=== PATIENT | female | born 1930 | race Caucasian/White ===

== ENCOUNTER 2019-01-04 10:44 | Observation (INO) ==
[2019-01-04] MEDS ORDERED: LASIX IV SCH (11:15)
--- NOTE | 2019-01-04 11:27 | Diag Imaging Result Doc PS360 ---
EXAM: CHEST-PORTABLE HISTORY: sob TECHNIQUE: Single view COMPARISON: 03/22/2018 FINDINGS: The lungs are well expanded. The heart is enlarged. The vessels are not distended. There are no infiltrates. No effusion identified. IMPRESSION: Cardiomegaly Electronically signed by David Johnson 01/04/2019 11:25 AM
[2019-01-04 11:50] LABS: ALLEN TEST NO; BE 15.3 mmoll (-3.0-3.0); BLOOD TYPE ARTERIAL; HCO3-(ACT) 36.9 mmoll (20.0-26.0); METHB 1.2 % (0.0-1.5); O2(CT) 10.8 mL/dL (15.0-23.0); O2HB 95.1 % (95.0-99.0); PO2(98.6) 105 mmHg (60-100); SAMPLE BLOOD; SAO2 99.4 % (95.0-100.0); THB 7.9 g/dL (11.5-17.4); pH(98.6) 7.41 (7.35-7.45)
[2019-01-04 12:06] LABS: PCO2(98.6) 66 mmHg (35-45)
[2019-01-04 12:07] LABS: MODALITY CANNULA
[2019-01-04 18:47] LABS: BILIRUBIN URINE NEGATIVE (NEGATIVE); BLOOD URINE NEGATIVE (NEGATIVE); COLOR YELLOW; GLUCOSE URINE NEGATIVE (NEGATIVE); KETONE URINE NEGATIVE (NEGATIVE); LEUKOCYTES URINE NEGATIVE (NEGATIVE); NITRITE URINE NEGATIVE (NEGATIVE); PROTEIN URINE TRACE mg/dL (NEGATIVE); SP GRAVITY URINE 1.023; TURBIDITY URINE CLEAR (CLEAR); UR EPITHELIAL CELLS <10 /HPF (<10); URINE BACTERIA NEGATIVE /HPF; URINE RBC <10 /HPF (<10); URINE SOURCE CLEAN CATCH; URINE WBC <10 /HPF (<10); UROBILINOGEN URINE NORMAL (NORMAL)
[2019-01-04] MEDS ORDERED: NORCO-5 PO PRN (19:47)
[2019-01-04] MEDS: ASPIRIN EC PO SCH (21:00)
[2019-01-04] MEDS: COLACE PO SCH (21:00)
[2019-01-04] MEDS ORDERED: VITAMIN D PO SCH (21:00)
[2019-01-04] MEDS: LIPITOR PO SCH (21:01)
--- NOTE | 2019-01-04 21:43 | HISTORY AND PHYSICAL ---
CHIEF COMPLAINT: Shortness of breath, leg cramps, anemia. Hemoglobin 7.6 from 11. Hematocrit decreased to 26 from 39 for the last 6 months. HISTORY OF PRESENT ILLNESS: She is an 88-year-old, white female basically admitted to the hospital with symptomatic anemia. She is refusing for GI workup. She has a hiatal hernia with esophagitis. Hemoccult stools are pending. As a result, admitted to the hospital for 2 units of packed RBCs. PAST MEDICAL HISTORY: 1. Abnormal EKG with right and left bundle. 2. Lipoma of the right head. 3. Carotid artery stenosis. Left side 50 to 69 percent. 4. Diverticulosis. 5. Hiatal hernia. 6. Diastolic heart failure. 7. Glaucoma. 8. History of shingles in the left T10 distribution better. 9. Hyperlipidemia. 10. Hypertension. 11. Hypothyroidism. 12. Lumbar spondylosis at L4-L5. 13. Sleep apnea. 14. Osteoporosis. 15. PAF. 16. Abnormal chest x-ray with right hilar prominence, 17. Restless legs syndrome. 18. Scoliosis. 19. Chronic ITP. PAST SURGICAL HISTORY: Cholecystectomy, right knee replacement bilateral cataract surgery, status post Abby fundoplication. ALLERGIES: Not known. SOCIAL HISTORY: Single, 2 children. . Retired from [employer]. Lives in [place] with daughter. No smoking. No alcohol. FAMILY HISTORY: Father of MVA at 40. Mom of heart attack at 81. HEALTH MAINTENANCE: Flu vaccine declined. Colonoscopy refused. Tetanus 2012. Last mammography August 2014. Seen by Dr. Leigh. MEDICATIONS: As follows: Vitamin D3 50,000 units once a week, Lipitor 40 daily, Synthroid 150 mcg every daily, potassium 10 mEq daily, Lanoxin 125 daily, Colace 100 p.o. at bedtime, Lasix 40 mg every other day, aspirin 81 mg daily, Mag oxide 400 at bedtime, Cardizem 120 as needed, [place] 5 mg q.4 hours as needed, Prilosec 20 daily, Bumex 5 mg every other day. REVIEW OF SYSTEMS: HEENT: No headache. No vision problem. No earache. No sore throat. Neck: No goiter. No lymphadenopathy. No bruit. Cardiopulmonary: No chest pain, shortness of breath, PND, orthopnea. GI: No nausea, vomiting, abdominal pain. : No history of hesitancy, frequency, dysuria. Cramping in the leg. Swelling. Neurological: No neurological symptoms. EXAMINATION: Vital signs: Temp is 97 degrees pulse is 56, blood pressure is stable, 3 L nasal cannula 100%. HEENT Exam: Pale. No jaundice. TMs are normal. Nose and throat within normal limits. Neck: Supple. No lymphadenopathy. No goiter. Chest: Bilateral air entry. Heart: Sounds are regular. Abdomen: Belly is soft, nontender. Good bowel sounds. Extremities: No peripheral edema, cyanosis. Neurologic: No obvious neurological deficits. INVESTIGATIONS: ABG: PH is 7.41, pCO2 of 66, PO2 105,32%. Urinalysis is clear. CBC in my office, hemoglobin 7, hematocrit 26. Waiting for stool occult testing. Chest x-ray: Cardiomegaly. Barium swallow x-ray: Moderate presbyesophagus and small hiatal hernia. ASSESSMENT AND PLAN: 1. An 88-year-old white female admitted to the hospital with symptomatic anemia, seen by Dr. Leigh and transfused 2 units of packed red blood cells. 2. IV iron infusions as needed. 3. Follow up on Hemoccult stool. 4. Reconcile home medications. We will also get a CT scan of the abdomen and pelvis. 5. CO2 narcosis, decreased FiO2 to 2 L and discussed the plan of care with the caregiver at bedside, the daughter. We will follow up. cc: Nolberto Edmond MD MTDD
--- NOTE | 2019-01-05 07:14 | EKG Report ---
Test Performed on : 01/05/2019 07:06:12 AM Test Reason : cp Blood Pressure : / mmHG Vent. Rate : 056 BPM Atrial Rate : 059 BPM P-R Int : 000 ms QRS Dur : 140 ms QT Int : 428 ms P-R-T Axes : 000 -62 113 degrees QTc Int : 413 ms Atrial fibrillation. with slow ventricular response. Left axis deviation Left bundle branch block Abnormal ECG When compared with ECG of 17-AUG-2015 18:02, Vent. rate has decreased BY 39 BPM Left bundle branch block is now present Criteria for Anterior infarct are no longer present Minimal criteria for Inferior infarct are no longer present Confirmed by Mayito WILCOX, P.J.M ([id number]) on 01/06/2019 5:37:36 PM
[2019-01-05 08:43] LABS: CALCIUM 8.3 mg/dL (8.8-10.2); CREATININE 1.3 mg/dL (0.5-0.9); POTASSIUM 4.5 mmol/L (3.5-5.1)
[2019-01-05 08:58] LABS: BASO# 0.01 X1000 (0.0-0.2); BASO% 0.2 % (0.0-0.8); EOS# 0.07 X1000 (0.0-0.7); EOS% 1.4 % (0.0-10.0); HEMATOCRIT 34.8 % (37.0-47.0); HEMOGLOBIN 9.7 g/dL (12.0-16.0); LYMPH# 1.06 X1000 (1.2-3.4); LYMPH% 20.5 % (20.5-51.1); MCH 26.1 PG (27-31); MCHC 27.9 g/dL (33-37); MCV 93.8 FL (81-99); MONO# 0.65 X1000 (0.11-0.59); MONO% 12.6 % (1.7-9.3); MPV 13.5 FL (7.4-10.4); NEUT# 3.37 X1000 (1.4-6.5); NEUT% 65.3 % (42.2-75.2); PLT 115 X1000 (130-400); RBC 3.71 XMIL (4.2-5.4); RDW 16.4 % (11.5-14.5); WBC 5.16 X1000 (4.8-10.8)
[2019-01-05 09:15] LABS: LYMPHS 24 % (21-51); MONO 4 % (1-9); SEGS 72 % (42-75)
--- NOTE | 2019-01-05 10:21 | Diag Imaging Result Doc PS360 ---
EXAM: CT ABD/PELVIS W/IV CONT ONLY HISTORY: Abdominal pain TECHNIQUE: CT abdomen and pelvis with intravenous contrast COMPARISON: 03/09/2012 FINDINGS: There are tiny bilateral pleural effusions. Small hiatal hernia. The gallbladder has been removed. Normal liver, spleen, pancreas, and adrenal glands. There is a 3.6 cm left renal cyst. No solid renal mass. No hydronephrosis. Severe atherosclerosis. No aortic aneurysm. Mild scoliosis with prominent degenerative changes. No bowel obstruction. No inflammation about the cecum. No abscess. There are scattered colonic diverticula. The uterus has been removed. No pelvic mass. The urinary bladder is distended and appears normal. IMPRESSION: 1.Tiny bilateral pleural effusions 2.Small hiatal hernia 3.Cholecystectomy 4.Left renal cyst 5.Colonic diverticulosis 6.Severe atherosclerosis 7.Hysterectomy 8.Scoliosis with degenerative spine changes and multilevel spinal stenosis This exam was performed using automated exposure control, adjustment of mA or kV according to patient size, and/or use of iterative reconstruction technique. Electronically signed by David Johnson 01/05/2019 10:18 AM
[2019-01-05] MEDS: KLOR-CON PO SCH (11:08)
[2019-01-05] MEDS: PRILOSEC PO SCH (11:09)
[2019-01-05] MEDS: PATIENT'S OWN MED PO SCH (11:09)
[2019-01-05] MEDS: LANOXIN PO SCH (11:09)
[2019-01-05] MEDS: SYNTHROID PO SCH (11:10)
[2019-01-05] MEDS ORDERED: INJECTAFER 750 MG in NS 250 ML IV ONE (20:00)
[2019-01-05] MEDS: COLACE PO SCH (21:12)
[2019-01-05] MEDS: ASPIRIN EC PO SCH (21:12)
[2019-01-05] MEDS: LIPITOR PO SCH (21:13)
--- NOTE | 2019-01-06 04:39 | PROGRESS NOTE ---
DATE: 01/05/2019 SUBJECTIVE: The patient complains of leg cramps and weakness. OBJECTIVE: Temperature is 97 degrees. Vitals are stable.HEENT: Improving. Chest: Clear. Heart: Sounds are regular. Abdomen: Belly is soft, nontender. No obvious deficits. INVESTIGATIONS: CBC: White cell count 5.9, hematocrit 34, and platelets 115,000. SMA 7. Creatinine 1.3. ASSESSMENT AND PLAN: 1. Symptomatic anemia status post 2 units of packed RBCs. Follow up on CT scan of the abdomen and pelvis, and Hemoccult stool. 2. We will inject 750 mg of Injectafer. 3. Restless legs syndrome due to symptomatic anemia. If no better, consider DENIS. 4. Continue present treatment. We will follow up. LEVEL OF DOCUMENTATION: 25 minutes. cc: Nolberto Edmond MD
[2019-01-06 08:15] VITALS: BP 138/48
[2019-01-06] MEDS ORDERED: BUMEX PO SCH (09:00)
[2019-01-06] MEDS: SYNTHROID PO SCH (09:21)
[2019-01-06] MEDS: KLOR-CON PO SCH (09:21)
[2019-01-06] MEDS: PRILOSEC PO SCH (09:23)
[2019-01-06] MEDS: LANOXIN PO SCH (09:23)
[2019-01-06] MEDS: PATIENT'S OWN MED PO SCH (09:23)
--- NOTE | 2019-01-08 07:48 | DISCHARGE SUMMARY ---
ADMISSION DATE: 01/04/2019 DISCHARGE DATE: 01/06/2019 DISCHARGING DIAGNOSIS: Symptomatic anemia with hemoglobin 7, hematocrit 26. SECONDARY DIAGNOSES: 1. Abnormal electrocardiogram with left bundle. 2. Lipoma of the right head. 3. Left noncritical carotid artery stenosis. 4. Diverticulosis. 5. Hiatal hernia. 6. Diastolic heart failure. 7. Chronic atrial fibrillation. 8. Glaucoma. 9. Hyperlipidemia. 10. Hypertension. 11. Hypothyroidism. 12. Lumbar spondylosis, L4-L5. 13. Sleep apnea. 14. Abnormal chest x-ray with right hilar prominence. 15. Scoliosis. 16. Chronic idiopathic thrombocytopenic purpura. PROCEDURES: 1. Two units of RBCs. 2. One bag of 750 mg of Injectafer. BRIEF HISTORY: Please see the H and P that was done. In brief, she is an 88-year-old, white female admitted to the hospital with anemia due to occult gastrointestinal bleeding. Previous EGD was negative. She has a hiatal hernia. Barium swallow showed presbyesophagus. The patient is refusing for a colonoscopy. CT scan of the abdomen and pelvis, findings were reassuring. After blood transfusion, her symptoms were much improved. Continue to monitor with outpatient Hemoccult stools. LABS: CBC: White cell count 5.1, hematocrit 34.8, platelets 115,000. ABG on 3 L, pH is 7.41, pCO2 of 66, PO2 of 105. Sodium 142, potassium 4.8, BUN 24, creatinine 1.3. CEA level 1.2. Urinalysis is clear. DISCHARGE INSTRUCTIONS: 1. Vitamin D3 with 50,000 units once a week, Lipitor 40 daily, Synthroid 150 mcg daily, potassium 10 mEq daily, Lanoxin 125 mcg daily, Colace 100 daily, Lasix 40 mg every other day, aspirin 81 mg daily, magnesium oxide 400 daily, Cardizem 120 mg daily, Prilosec 20 daily, Bumex 5 mg every other day. 2. Continue oxygen, 2 L, BiPAP machine. 3. Hemoccult stools x3. 4. Follow up in my office in 1 week. 5. The patient is refusing further workup for colonoscopy for occult GI bleeding. Can refer to Dr. Leigh for small capsule endoscopy if there is a blood in the Hemoccult stools. 6. Results discussed with the patient's caregiver, the daughter. cc: Nolberto Edmond MD MTDD
== END 2019-01-06 10:12 | disposition home or self-care (01) ==
LOC: DIRADM → EDIPHOLD 10:44 → 3N 13:25
PROVIDERS: ADMIT Internal Medicine; ATTEND Internal Medicine